=== PATIENT | female | born 1940 | race American Indian/Alaskan Native ===

== ENCOUNTER 2016-07-13 15:08 | Emergency (ER) | payer OTHER ==
[2016-07-13 16:42] LABS: Basophils % (Auto) 0.4 % (0.0-1.8); Eosinophils % (Auto) 0.3 % (0.0-4.3); Hematocrit 44.1 % (30.3-42.9); Hemoglobin 14.2 gm/dl (10.1-14.3); Mean Corpuscular HGB Conc 32 % (30-34); Mean Corpuscular Hemoglobin 29 pg (28-32); Mean Corpuscular Volume 89 fl (79-97); Platelet Count 183 K/mm3 (140-440); Red Blood Count 4.94 M/mm3 (3.65-5.03); Red Cell Distribution Width 15.8 % (13.2-15.2); White Blood Count 5.7 K/mm3 (4.5-11.0)
[2016-07-13 17:28] LABS: Blood Urea Nitrogen 7 mg/dL (7-17); Calcium 9.8 mg/dL (8.4-10.2); Carbon Dioxide 22 mmol/L (22-30); Chloride 104.1 mmol/L (98-107); Glucose 97 mg/dL (65-100); Potassium 3.6 mmol/L (3.6-5.0); Sodium 143 mmol/L (137-145)
[2016-07-13 17:32] LABS: Anion Gap 21 mmol/L
--- NOTE | 2016-07-13 17:41 | Emergency Department Report ---
ED General Adult HPI - General Chief complaint: High BP Stated complaint: HTN Time Seen by Provider: 07/13/16 15:50 Source: patient, family Mode of arrival: Stretcher Limitations: No Limitations - History of Present Illness Initial comments: Apparently the patient's grandson was questioned by calling [facility] [employer] while she was at judaism. Patient states that she was upset and she tripped and fell in the street. She denies any injury from the fall. She denies any loss of consciousness. She was found to be hypertensive. She did not take her usual blood pressure medicine today. She denies any neurological change. She denies any neck or back pain. She did not vomit. She feels back to normal now. When she presented her blood pressure was bit elevated. On recheck it was less so. She was said to be tachycardic in the field. -: Gradual Quality: other (denies pain states has some chronic right trapezius muscle pain. They have been exacerbated.) Associated Symptoms: denies other symptoms - Related Data Home Medications Medication Instructions Recorded Confirmed Last Taken Atenolol [Tenormin] 25 mg PO DAILY 07/13/16 07/13/16 Unknown Donepezil [Aricept] 5 mg PO QDAY 07/13/16 07/13/16 Unknown traMADol [Ultram] 50 mg PO Q6HR PRN 07/13/16 07/13/16 Unknown Allergies Allergy/AdvReac Type Severity Reaction Status Date / Time aspirin Allergy Vomiting Verified 07/13/16 15:44 ED Review of Systems ROS: Stated complaint: HTN Other details as noted in HPI Constitutional: denies: chills, fever Eyes: denies: eye pain, eye discharge, vision change ENT: denies: ear pain, throat pain Respiratory: denies: cough, shortness of breath, wheezing Cardiovascular: denies: chest pain, palpitations Endocrine: no symptoms reported Gastrointestinal: denies: abdominal pain, nausea, diarrhea Genitourinary: denies: urgency, dysuria, discharge Musculoskeletal: denies: back pain, joint swelling, arthralgia Skin: denies: rash, lesions Neurological: denies: headache, weakness, paresthesias Psychiatric: denies: anxiety, depression Hematological/Lymphatic: denies: easy bleeding, easy bruising ED Past Medical Hx - Past Medical History Hx Hypertension: Yes Additional medical history: dimensia - Surgical History Past Surgical History?: No - Social History Smoking Status: Never Smoker - Medications Home Medications: Home Medications Medication Instructions Recorded Confirmed Last Taken Type Atenolol [Tenormin] 25 mg PO DAILY 07/13/16 07/13/16 Unknown History Donepezil [Aricept] 5 mg PO QDAY 07/13/16 07/13/16 Unknown History traMADol [Ultram] 50 mg PO Q6HR PRN 07/13/16 07/13/16 Unknown History ED Physical Exam - General Limitations: No Limitations General appearance: alert, in no apparent distress - Head Head exam: Present: atraumatic, normocephalic - Eye Eye exam: Present: normal appearance, PERRL, EOMI. Absent: scleral icterus - ENT ENT exam: Present: mucous membranes moist - Neck Neck exam: Present: normal inspection - Respiratory Respiratory exam: Present: normal lung sounds bilaterally. Absent: respiratory distress - Cardiovascular Cardiovascular Exam: Present: regular rate, normal rhythm. Absent: systolic murmur, diastolic murmur, rubs, gallop - GI/Abdominal GI/Abdominal exam: Present: soft, normal bowel sounds. Absent: distended, tenderness, guarding, rebound, rigid - Extremities Exam Extremities exam: Present: normal inspection, other (mild trapezius muscle spasm on the right) - Back Exam Back exam: Present: normal inspection - Neurological Exam Neurological exam: Present: alert, oriented X3, CN II-XII intact. Absent: motor sensory deficit - Psychiatric Psychiatric exam: Present: normal affect, normal mood - Skin Skin exam: Present: warm, dry, intact, normal color. Absent: rash ED Course Vital Signs 07/13/16 07/13/16 15:40 16:40 Temperature 98.2 F Pulse Rate 71 Respiratory 16 16 Rate Blood Pressure 183/76 O2 Sat by Pulse 98 99 Oximetry ED Medical Decision Making - Lab Data Result diagrams: 07/13/16 16:17 07/13/16 16:17 Laboratory Results - last 24 hr 07/13/16 07/13/16 16:17 16:17 WBC 5.7 RBC 4.94 Hgb 14.2 Hct 44.1 H MCV 89 MCH 29 MCHC 32 RDW 15.8 H Plt Count 183 Lymph % (Auto) 16.3 [place] % (Auto) 7.2 Eos % (Auto) 0.3 Baso % (Auto) 0.4 Lymph # 0.9 L [place] # 0.4 Eos # 0.0 Baso # 0.0 Seg Neutrophils % 75.8 H Seg Neutrophils # 4.3 Sodium 143 Potassium 3.6 Chloride 104.1 Carbon Dioxide 22 Anion Gap 21 BUN 7 Creatinine 0.4 L Estimated GFR > 60 BUN/Creatinine Ratio 17.50 Glucose 97 Calcium 9.8 Critical care attestation.: If time is entered above; I have spent that time in minutes in the direct care of this critically ill patient, excluding procedure time. ED Disposition Clinical Impression: Trapezius muscle spasm Fall Qualifiers: Encounter type: initial encounter Qualified Code(s): W19.XXXA - Unspecified fall, initial encounter Hypertension Qualifiers: Hypertension type: essential hypertension Qualified Code(s): I10 - Essential ( primary) hypertension Disposition: DISCHARGED TO HOME OR SELFCARE Is pt being admited?: No Does the pt Need Aspirin: No Condition: Stable Instructions: Hypertension (ED), Muscle Spasm (ED) Additional Instructions: Tylenol as needed. Follow-up with your primary care physician. Medicines as directed. Referrals: PRIMARY MD ADE [Primary Care Provider] - 3-5 Days Time of Disposition: 17:42
[2016-07-13 18:39] VITALS: BP 148/72
== END 2016-07-13 18:39 | disposition home or self-care (01) ==
LOC: ED 15:08
DX: I10 Essential (primary) hypertension (principal); M62.838 Other muscle spasm; Z88.6 Allergy status to analgesic agent
CPT/HCPCS: 36415; 80048; 85025; 93005; 93010; 99283

== ENCOUNTER 2016-10-02 11:02 | Emergency (ER) | payer MEDICARE, OTHER ==
--- NOTE | 2016-10-02 13:33 | Cat Scan Report ---
CT HEAD WITHOUT CONTRAST: HISTORY: Neurological deficit. Serial contiguous axial images were obtained through the cranium. Intravenous contrast material was not administered. The ventricles are normal in size and appearance. There is no mass effect or midline shift. No areas of abnormally increased or decreased attenuation are seen. No mass lesion is seen. The mastoid air cells and visualized portions of the sinuses are normal. IMPRESSION: Cranial CT scan within normal limits. No acute process noted.
[2016-10-02 13:36] LABS: Basophils % (Auto) 0.5 % (0.0-1.8); Eosinophils % (Auto) 1.5 % (0.0-4.3); Hematocrit 40.7 % (30.3-42.9); Hemoglobin 13.5 gm/dl (10.1-14.3); Mean Corpuscular HGB Conc 33 % (30-34); Mean Corpuscular Hemoglobin 29 pg (28-32); Mean Corpuscular Volume 88 fl (79-97); Platelet Count 244 K/mm3 (140-440); Red Blood Count 4.64 M/mm3 (3.65-5.03); Red Cell Distribution Width 14.2 % (13.2-15.2); White Blood Count 5.4 K/mm3 (4.5-11.0)
[2016-10-02 13:46] LABS: INR 0.94 (0.87-1.13)
[2016-10-02 13:47] LABS: Partial Thromboplastin Time 25.8 Sec. (24.2-36.6)
[2016-10-02 13:51] LABS: Anion Gap 17 mmol/L; Blood Urea Nitrogen 15 mg/dL (7-17); Calcium 9.4 mg/dL (8.4-10.2); Carbon Dioxide 26 mmol/L (22-30); Chloride 96.6 mmol/L (98-107); Glucose 96 mg/dL (65-100); Potassium 3.6 mmol/L (3.6-5.0); Sodium 136 mmol/L (137-145)
[2016-10-02 14:06] LABS: Erythrocyte Sedimentation Rate 37 mm/Hr (0-20)
[2016-10-02] MEDS ORDERED: TYLENOL ONE (15:44)
[2016-10-02] MEDS ORDERED: TYLENOL PO ONE (15:47)
[2016-10-02] MEDS ORDERED: TENORMIN PO ONE (16:23)
[2016-10-02] MEDS ORDERED: TORADOL IM ONE (16:23)
[2016-10-02] MEDS ORDERED: APRESOLINE PO ONE (16:24)
--- NOTE | 2016-10-02 16:30 | Emergency Department Report ---
HPI - General Chief Complaint: Headache Time Seen by Provider: 10/02/16 16:12 - HPI HPI: This is a 76-year-old Afro-[place] female presents to the emergency department with complaint of a one-week history of a generalized headache, neck pain and bilateral shoulder pain. The pain is intermittent. She denies any vision change, slurred speech, numbness, paresthesias or any neurological deficits. The patient also has been having some elevated blood pressure as she has been out of her atenolol for the past week. She went to see her primary care doctor , Dr. Beaulieu, but says that the prescription was never signed. She's been taking Aleve for discomfort with some transient relief. No recent travel or sick contacts at home. Patient thinks that she might have some arthritis. ED Past Medical Hx - Past Medical History Hx Hypertension: Yes Additional medical history: dimensia - Social History Smoking Status: Never Smoker - Medications Home Medications: Home Medications Medication Instructions Recorded Confirmed Last Taken Type Donepezil [Aricept] 5 mg PO QDAY 07/13/16 10/02/16 Unknown History traMADol [Ultram] 50 mg PO Q6HR PRN 07/13/16 10/02/16 Unknown History Atenolol [Tenormin] 25 mg PO DAILY #30 tablet 10/02/16 Unknown Rx Hydrochlorothiazide [HCTZ] 12.5 mg PO DAILY 10/02/16 10/02/16 Unknown History ED Review of Systems ROS: Stated complaint: HBP/HEADACHES Other details as noted in HPI Comment: All other systems reviewed and negative Constitutional: denies: chills, fever Eyes: denies: eye pain, eye discharge, vision change ENT: denies: ear pain, throat pain Respiratory: denies: cough, shortness of breath, wheezing Cardiovascular: denies: chest pain, palpitations Gastrointestinal: denies: abdominal pain, nausea, diarrhea Genitourinary: denies: urgency, dysuria, discharge Musculoskeletal: arthralgia. denies: joint swelling Skin: denies: rash, lesions Neurological: headache. denies: weakness, numbness, paresthesias Physical Exam - Physical Exam Vital Signs: Vital Signs 10/02/16 10/02/16 10/02/16 12:07 15:50 15:51 Temperature 98.3 F 98.0 F Pulse Rate 58 L 57 L Respiratory 18 18 18 Rate Blood Pressure 148/88 187/95 O2 Sat by Pulse 100 100 Oximetry Physical Exam: GENERAL: The patient is well-developed well-nourished. HEENT: Normocephalic. Atraumatic. Extraocular motions are intact. Patient has moist mucous membranes. Pupils equal reactive to light bilaterally. No nystagmus. NECK: Supple. Trachea is midline. No midline tenderness to palpation, step- off or deformity. Full range of motion. Patient has some tenderness to palpation along the bilateral lateral neck down along the trapezius muscle. CHEST/LUNGS: Clear to auscultation. There is no respiratory distress noted. HEART/CARDIOVASCULAR: Regular. There is no tachycardia. There is no gallop rub or murmur. ABDOMEN: Abdomen is soft, nontender. Patient has normal bowel sounds. There is no abdominal distention. SKIN: Skin is warm and dry. NEURO: The patient is awake, alert, and oriented. The patient is cooperative. The patient has no focal neurologic deficits. The patient has normal speech. Cranial nerves II through XII grossly intact. No facial asymmetry. No pronator drift. MUSCULOSKELETAL: There is no tenderness or deformity. There is no limitation range of motion. There is no evidence of acute injury.Muscle strength 5 out of 5 upper and lower extremity bilaterally. ED Course Vital Signs 10/02/16 10/02/16 10/02/16 12:07 15:50 15:51 Temperature 98.3 F 98.0 F Pulse Rate 58 L 57 L Respiratory 18 18 18 Rate Blood Pressure 148/88 187/95 O2 Sat by Pulse 100 100 Oximetry ED Medical Decision Making - Lab Data Result diagrams: 10/02/16 13:22 10/02/16 13:22 - EKG Data -: EKG Interpreted by Hi EKG shows normal: sinus rhythm, axis (LAD), intervals, QRS complexes (LVH), ST- T waves Rate: bradycardia (57 bpm) - EKG Data When compared to previous EKG there are: previous EKG unavailable Interpretation: other (sinus rhythm, LVH, mild bradycardia at 57 bpm) - Radiology Data Radiology results: report reviewed CT of the head does not show any acute process including no hemorrhage, mass, shift, diffuse edema or skull fracture. - Medical Decision Making 76-year-old female presents with a one-week history of intermittent headache, some pain along the neck and shoulders. Today she has some nonspecific dizziness/lightheadedness. On physical exam there is no focal, motor or sensory deficits. Cranial nerves are intact. Patient had a CT of the head without contrast does not show any bleed, shift, mass or any acute process. Her labs are unremarkable including no signs of infection, electrolyte abnormalities, renal insufficiency or glucose abnormalities. Patient had a negative troponin. She had some elevated blood pressure at first but it came down with administration of 1 oral pill. Patient was seen ambulatory in the emergency department and appeared stable. Patient complained of some lingering lightheadedness. I discussed with the patient and her 2 sons about discharge versus admission and they thought it was best if she went home to rest and they will try to bring her to follow-up with her primary care doctor in the morning. However they will bring her back to the emergency department immediately with any alteration in mental status, acute weakness, worsening of her symptoms or any acute distress. Critical Care Time: No Critical care attestation.: If time is entered above; I have spent that time in minutes in the direct care of this critically ill patient, excluding procedure time. ED Disposition Clinical Impression: Medication refill, Lightheaded Hypertension Qualifiers: Hypertension type: essential hypertension Qualified Code(s): I10 - Essential ( primary) hypertension Headache Qualifiers: Headache type: unspecified Headache chronicity pattern: episodic headache Intractability: not intractable Qualified Code(s): R51 - Headache Disposition: DISCHARGED TO HOME OR SELFCARE Is pt being admited?: No Condition: Stable Instructions: Acute Headache (ED), Hypertension (ED), Lightheadedness (ED) Additional Instructions: Please follow-up with Dr. Beaulieu as soon as possible. Return to the hospital/ emergency department with any worsening of your symptoms, inability to walk, vision change, slurred speech, intractable headache, chest pain, shortness of breath, or any acute distress. Prescriptions: Atenolol [Tenormin] 25 mg PO DAILY #30 tablet Referrals: DENISE OSEI JR [Other] - 3-5 Days Time of Disposition: 19:18
[2016-10-02 19:34] VITALS: BP 145/79
== END 2016-10-02 19:25 | disposition home or self-care (01) ==
LOC: ED 11:02
DX: I10 Essential (primary) hypertension (principal); R42 Dizziness and giddiness; R51 Headache; F03.90 Unspecified dementia, unspecified severity, without behavioral disturbance, psychotic disturbance, mood disturbance, and anxiety
CPT/HCPCS: 36415; 70450; 80048; 82962; 84484; 85025; 85610; 85652; 85670; 85730; 93005; 93010; 96372; 99285; J1885